=== PATIENT | male | born 1955 | race Caucasian/White ===

== ENCOUNTER 2018-08-23 00:14 | Emergency (ER) | payer OTHER ==
[~2018-08-23] VITALS: Ht 167.6 cm; Wt 49.9 kg
[~2018-08-23 00:14] MED LIST: ALBUTEROL2.5 MG/0.1 INH; AMBEREN PO; APAP500; ATENOLOL 25 MG25 M1 PO; AVELOX 400 MG400 MG PO; IRON325 PO; LANOXIN 0.120.125 M1 PO; LEVAQUIN 500 M500 MG PO; LORTAB 7.5/5001 TA1 PO; LORTAB 7.5/5001 TA3 OR; NICODERM CQ1 EAC1 TP; NICORETTE2 MG; NICOTINE TRANSD21 M1; PERCOCET 5-3251 EACH PO; PREDNISONE 20 M20 MG PO; SENOKOT-S1 TA1 OR; SYMBICORT160 MCG/4. INH; VENTOLIN HFA 1818 GM INH; XANAX 0.25 MG0.25 MG PO; ZPAK PO
[2018-08-23 00:34] LABS: BE(vivo) -2.2 mmol/L (-2 to +3); HCO3 22.6 mmol/L (22.0-26.0); PCO2 VENOUS 39.2 mmHg (41.0-51.0); PO2 VENOUS 38.4 mmHg (35.0-45.0)
[2018-08-23 00:37] LABS: ABSOLUTE NEUTROPHILS 6.7 thou/uL (1.4-8.2); EOSINOPHILS 4.5 % (0.0-3.0); HEMATOCRIT 42.1 % (42.0-52.0); HEMOGLOBIN 14.8 gm/dL (14.0-18.0); LYMPHOCYTES 16.9 % (24.0-44.0); MCH 32.4 pg (26.0-34.0); MCHC 35.3 g/dL (28.0-37.0); MCV 91.7 fL (80.0-100.0); MONOCYTES 10.3 % (1.0-8.0); PLATELET COUNT 360 thou/uL (150-400); POLYS 67.3 % (36.0-66.0); RBC 4.59 mil/uL (4.50-6.00); RDW 13.5 % (10.5-14.5); WBC 9.9 thou/uL (4.0-11.0)
[2018-08-23 00:49] LABS: ANION GAP 11 mmol/L (7-16); BUN 11 mg/dL (7-18); CALCIUM 8.8 mg/dL (8.5-10.1); CHLORIDE 97 mmol/L (98-107); CO2 25 mmol/L (21-32); CREATININE 0.9 mg/dL (0.7-1.3); GLUCOSE 92 mg/dL (74-106); POTASSIUM 3.8 mmol/L (3.5-5.1); SODIUM 133 mmol/L (136-145)
[2018-08-23 00:55] LABS: ALBUMIN 3.2 g/dL (3.4-5.0); SGOT 16 U/L (15-37); SGPT 17 U/L (30-65); TOTAL BILIRUBIN 0.6 mg/dL (<0.1-1.0); TOTAL PROTEIN 7.6 g/dL (6.4-8.2); TROPONIN-I <0.06 ng/mL (<0.06)
[2018-08-23 02:18] LABS: BE(vivo) -3.2 mmol/L (-2 to +3); HCO3 21.7 mmol/L (22.0-26.0); PCO2 VENOUS 38.5 mmHg (41.0-51.0); PO2 VENOUS 50.2 mmHg (35.0-45.0)
[2018-08-23 04:12] LABS: BE(vivo) -3.5 mmol/L (-2 to +3); HCO3 20.1 mmol/L (22.0-26.0); PCO2 VENOUS 31.9 mmHg (41.0-51.0); PO2 VENOUS 89.6 mmHg (35.0-45.0)
[2018-08-23 04:27] VITALS: BP 94/61
--- NOTE | 2018-08-23 18:27 | EKG ---
[address] [address] ELECTROCARDIOGRAM REPORT Name: NATASHA BRITT Room #: [id number] Admission: 08/23/18 Attend Phys: Discharge: 08/23/18 Date of : 57 Report #: [id number] THIS REPORT FOR: //name// [facility] ED Test Date: 2018-08-23 Test Time: 00:37:18 Pat Name: NATASHA BRITT Department: Room: Gender: M Direct Care Specialist: ALICIA HONEYCUTT : 1955 Requested By: Elaine Lopez Order Number: [id number] MD: Liborio Posadas Measurements Intervals [place] Rate: 91 P: 63 SD: 139 QRS: -25 QRSD: 83 T: 64 QT: 362 QTc: 446 Interpretive Statements Sinus rhythm LAE, consider biatrial enlargement Borderline left axis deviation Abnormal R-wave progression, early transition Baseline wander in lead(s) V2 Compared to ECG 06/02/2015 18:29:40 Sinus tachycardia no longer present Electronically Signed On 08-23-2018 18:27:04 [employer] by Liborio Posadas [email or web address] <ELECTRONICALLY SIGNED> By: Liborio Posadas MD 08/23/18 1827 Liborio Posadas MD /EPI
== END 2018-08-23 04:33 | disposition home or self-care (01) ==
LOC: ER 00:14
PROVIDERS: Student in an Organized Health Care Education/Training Program
DX: T58.91XA Toxic effect of carbon monoxide from unspecified source, accidental (unintentional), initial encounter (principal); J44.9 Chronic obstructive pulmonary disease, unspecified; Z85.118 Personal history of other malignant neoplasm of bronchus and lung; F17.210 Nicotine dependence, cigarettes, uncomplicated; Z98.890 Other specified postprocedural states

== ENCOUNTER → 2019-05-20 | Outpatient (CLI) | payer OTHER | LOC: EDSTATUS 12:44 → RAD 12:44 | DX: J44.9 Chronic obstructive pulmonary disease, unspecified (principal); Z85.118 Personal history of other malignant neoplasm of bronchus and lung ==

== ENCOUNTER → 2020-03-31 | Outpatient (CLI) | payer OTHER | LOC: CAT 12:56 | PROVIDERS: ATTEND Internal Medicine | DX: Z12.2 Encounter for screening for malignant neoplasm of respiratory organs (principal); Z87.891 Personal history of nicotine dependence; I70.0 Atherosclerosis of aorta; M48.04 Spinal stenosis, thoracic region; M25.78 Osteophyte, vertebrae; Z98.890 Other specified postprocedural states ==

== ENCOUNTER → 2021-07-02 | Outpatient (CLI) | payer OTHER | LOC: CAT 07-01 15:33 | PROVIDERS: ATTEND Internal Medicine | DX: Z12.2 Encounter for screening for malignant neoplasm of respiratory organs (principal); J43.9 Emphysema, unspecified; I70.0 Atherosclerosis of aorta; I25.10 Atherosclerotic heart disease of native coronary artery without angina pectoris; J98.4 Other disorders of lung; M47.814 Spondylosis without myelopathy or radiculopathy, thoracic region; M25.78 Osteophyte, vertebrae; Z87.891 Personal history of nicotine dependence ==